=== PATIENT | female | born 1985 | race Caucasian/White ===

== ENCOUNTER 2018-11-24 14:50 | Emergency (ER) | payer OTHER ==
[~2018-11-24] VITALS: Ht 157.5 cm; Wt 52.2 kg
[2018-11-24] MEDS ORDERED: LEVOFLOXACIN500 MG PO (15:15)
[2018-11-24] MEDS ORDERED: PREDNISOLONE ACE5 M1 OP (15:15)
[2018-11-24] MEDS ORDERED: CITALOPRAM HBR20 MG PO (15:16)
== END 2018-11-24 17:40 | disposition home or self-care (01) ==
LOC: ED 14:50
DX: H15.001 Unspecified scleritis, right eye (principal); S06.9X9D Unspecified intracranial injury with loss of consciousness of unspecified duration, subsequent encounter; W22.8XXD Striking against or struck by other objects, subsequent encounter; Z79.899 Other long term (current) drug therapy; Z79.52 Long term (current) use of systemic steroids
CPT/HCPCS: 70450; 70481; 70487; 85025; 99284-25; Q9967